=== PATIENT | female | born 1955 | race Caucasian/White ===

== ENCOUNTER 2016-06-04 05:33 | Day surgery (SDC) | payer OTHER, BC ==
[~2016-06-04] VITALS: Ht 162.6 cm; Wt 79.4 kg
[~2016-06-04 05:33] MED LIST: BENEFIBER PA1 PACKET PO; BENICAR HCT1 TABLET PO; CELEBREX200 MG PO; Cymbalta PO; Ecotrin PO; Feosol PO; HYZAAR 50-121 TABLET PO; LAMICTAL100 MG PO; MOBIC7.5 MG PO; NEURONTIN100 MG PO; SENOKOT S,PE1 TABLET PO; THERAGRAN1 TABLET PO; ULTRAM50 MG PO; Vicodin,Norco 5/325 PO; ZANAFLEX4 MG PO; ZOLOFT100 MG PO
[2016-06-04 06:20] VITALS: BP 133/67
[2016-06-04] MEDS ORDERED: NORCO 5/3251 TABLET PO (08:53)
[2016-06-04 09:15] VITALS: BP 134/65
[2016-06-04 09:56] VITALS: BP 143/82
== END 2016-06-04 10:05 | disposition home or self-care (01) ==
LOC: SDC 05:33
PROC: 06B Lower Veins, Excision (ICD-10-PCS; principal; 2016-06-04)
DX: K64.8 Other hemorrhoids (principal); I10 Essential (primary) hypertension; M19.90 Unspecified osteoarthritis, unspecified site; K27.9 Peptic ulcer, site unspecified, unspecified as acute or chronic, without hemorrhage or perforation; E66.9 Obesity, unspecified; Z68.30 Body mass index [BMI] 30.0-30.9, adult; Z91.09 Other allergy status, other than to drugs and biological substances; Z83.3 Family history of diabetes mellitus; Z82.49 Family history of ischemic heart disease and other diseases of the circulatory system; Z80.9 Family history of malignant neoplasm, unspecified
CPT/HCPCS: 88305; J1100; J2250; J2405; J2765; J3010; S0020